=== PATIENT | male | born 1970 | race Caucasian/White ===

== ENCOUNTER 2016-10-16 23:30 | Emergency (ER) | payer SELFPAY ==
[~2016-10-16] VITALS: Ht 172.7 cm; Wt 72.0 kg
[2016-10-16 23:36] VITALS: Ht 172.7 cm; Wt 72.0 kg
--- NOTE | 2016-10-17 03:35 | RADRPT ---
PROCEDURE: XR Knee. CLINICAL INDICATION: Trauma TECHNIQUE: AP, lateral and oblique view of the right knee were obtained. COMPARISON: There are no similar studies submitted for comparison. FINDINGS: There is normal mineralization.There is no acute fracture or dislocation.No destructive lesion is id entified. There is no joint effusion. IMPRESSION: No fracture or dislocation. RPTAT: HIKT .Jg Fitzgerald MD, MD Date Time Electronically viewed and signed by .Jg Fitzgerald MD, MD on 10/17/2016 03:34 .T/
[2016-10-17] MEDS ORDERED: METF500T4 PO (03:36)
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
[2016-10-17] MEDS ORDERED: IBUP-1542 PO (04:44)
[2016-10-17 04:53] VITALS: BP 117/77; PULSE 69; RESP 17; TEMP 98.8
== END 2016-10-17 04:55 | disposition home or self-care (01) ==
LOC: FTE 23:30
DX: S80.01XA Contusion of right knee, initial encounter (principal); E11.9 Type 2 diabetes mellitus without complications; V49.50XA Passenger injured in collision with unspecified motor vehicles in traffic accident, initial encounter; Z79.84 Long term (current) use of oral hypoglycemic drugs
CPT/HCPCS: 73562